=== PATIENT | male | born 1975 | race Caucasian/White ===

== ENCOUNTER 2018-05-16 10:23 | Emergency (ER) | payer OTHER ==
--- OUTSIDE RECORDS SUMMARY | 2018-05-16 10:26 | XMS REPORT | Clinical Summary ---
:1975 Author Organization [facility] Address [address] [place] [address] Care Team Providers Name Role Phone Lacey Merritt MD Primary Care Provider Allergies Active Allergy Reactions Severity Noted Date Comments Promethazine 03/09/2016 Propranolol Other (See Comments) High 11/25/2015 Drops Blood pressure. Metoclopramide Hcl Other (See Comments) High 11/25/2015 Suicidal Ideation. Medications Medication Sig Dispensed Refills Start Date End Date Status ARIPiprazole (ABILIFY) Take 5 mg by 0 Active 5 MG tablet mouth daily. busPIRone (BUSPAR) 10 Take 15 mg by 0 Active MG tablet mouth 2 (two) times a day. clonAZEPAM (KlonoPIN) Take 0.5 mg by 0 Active 0.5 MG tablet mouth daily as needed for seizures. Active Problems Not on file Family History Medical History Relation Name Comments Aortic aneurysm Father Atrial fibrillation Mother Hepatitis Mother "hepatitis C" Leukemia Mother Stroke Sister Relation Name Status Comments Father Mother Sister Social History Tobacco Use Types Packs/Day Years Used Date Former Smoker 25 Comments: "did smoke a half pack to a full pack a day for 26 years" Sex Assigned at Date Recorded Not on file Job Start Date Occupation Industry Not on file Not on file Not on file Travel History Travel Start Travel End No recent travel history available. Last Filed Vital Signs Not on file Plan of Treatment Health Maintenance Due Date Last Done Comments INFLUENZA VACCINE 11/29/2017 Results Not on fileafter 05/15/2017 Insurance Payer Benefit Plan / Group Subscriber ID Type Phone Address BCBS BCBS CHOICE PPO/FEDERAL EMPL PPO xxxxxxxxxxxx PPO Advance Directives Patient has advance care planning documents on file. For more information, please contact:Raleigh Guzman[address] [place] [address]
[2018-05-16 10:41] LABS: Absolute Lymphocytes (CBC) 1.4 K/uL (0.7-4.9); Absolute Monocytes 0.4 K/uL (0.1-1.3); Basophils % 0.3 % (0-1.3); Eosinophils % 1.1 % (0-4.4); Hematocrit 43.4 % (39.6-49.0); Lymphocytes % 23.4 % (15.3-44.8); Monocytes % 6.8 % (3.3-12.3); RBC Red Blood Cell Count 5.13 M/uL (4.33-5.43)
[2018-05-16 10:54] LABS: Potassium 3.6 mmol/L (3.5-5.1)
--- NOTE | 2018-05-16 11:02 | RAD REPORT ---
EXAM DESCRIPTION: CT - Head Brain Wo Cont - 05/16/2018 10:52 am CLINICAL HISTORY: visual disturbance, left temporal Headache, history of TIA/CVA COMPARISON: Ct Stroke Brain Wo Cont dated 03/17/2017; HEAD BRAIN W O CONTRAST dated 08/24/2011; Brain Wo Cont dated 03/17/2017 TECHNIQUE: All CT scans are performed using dose optimization technique as appropriate and may inclu de automated exposure control or mA/KV adjustment according to patient size. FINDINGS: No intracranial hemorrhage, hydrocephalus or extra-axial fluid collection.No areas of brai n edema or evidence of midline shift. The paranasal sinuses and mastoids are clear. The calvarium is intact. IMPRESSION: No acute intracranial abnormality.
[2018-05-16 12:47] LABS: Urine Blood NEGATIVE (NEG); Urine Glucose NEGATIVE (NEG); Urine Protein NEGATIVE (NEG); Urine Specific Gravity 1.015 (1.005-1.030); Urine pH 5.5 (5.0-7.0)
--- NOTE | 2018-05-16 12:58 | RAD REPORT ---
EXAM DESCRIPTION: - CP - 05/16/2018 12:48 pm CLINICAL HISTORY: VISUAL DISTURBANCES TIA/CVA COMPARISON: No comparisons TECHNIQUE: Real-time sonographic evaluation of both carotid systems was performed. Doppler interroga tion was performed with waveform tracing bilaterally. FINDINGS: Normal high resistance waveforms are noted in both external carotid arteries. The common c arotid arteries and internal carotid arteries show normal low resistance waveforms. No significant plaque formation is seen. Peak systolic and end diastolic velocity values and the ICA/ CCA ratios are in the non-hemodynamically significant range. Antegrade flow seen in both vertebral arteries. IMPRESSION: No significant atherosclerotic changes noted. No evidence of a hemodynamically significant stenosis.
--- NOTE | 2018-05-16 13:26 | ER ---
Nurse's Notes [facility] Name: Juan David Weldon Age: 42 yrs Sex: Male : 1975 Arrival Date: 05/16/2018 Time: 10:27 Bed 2 Private MD: Diagnosis: Visual disturbances;Visual field defects Presentation: 05/16 10:21 Presenting complaint: EMS states: sudden onset visual disturbance that started about sv 0930 and lasted under an hour and has subsided since then. EKG SR, BS-97, 20 G R AC. Transition of care: patient was not received from another setting of care. Onset of symptoms was May 16, 2018 at 09:30. Risk Assessment: Do you want to hurt yourself or someone else? Patient reports no desire to harm self or others. Initial Sepsis Screen: Does the patient meet any 2 criteria? No. Patient's initial sepsis screen is negative. Does the patient have a suspected source of infection? No. Patient's initial sepsis screen is negative. Care prior to arrival: IV initiated. 20 GA, in the right antecubital area, Glucose check: 97. 10:21 Method Of Arrival: EMS: Independent IP EMS sv 10:21 Acuity: AYAH 3 sv Historical: - Allergies: 10:53 Reglan; sv 10:53 SSRIs; sv - Home Meds: 10:53 Prilosec Oral [Active]; Aspirin Oral [Active]; sv - PMHx: 10:53 Anxiety; Depression; GERD; hiatal hernia; sv - PSHx: 10:53 None; sv - Immunization history:: Adult Immunizations up to date. - Social history:: Smoking status: Patient/guardian denies using tobacco. - Family history:: not pertinent. - Ebola Screening: : No symptoms or risks identified at this time. - Hospitalizations: : No recent hospitalization is reported. Screenin:30 Abuse screen: Denies threats or abuse. Denies injuries from another. Nutritional sv screening: No deficits noted. Tuberculosis screening: No symptoms or risk factors identified. Fall Risk None identified. Assessment: 11:40 Reassessment: Patient appears in no apparent distress at this time. No changes from sv previously documented assessment. Patient and/or family updated on plan of care and expected duration. Pain level reassessed. Patient is alert, oriented x 3, equal unlabored respirations, skin warm/dry/pink. 12:29 Reassessment: Patient appears in no apparent distress at this time. No changes from sv previously documented assessment. Patient and/or family updated on plan of care and expected duration. Pain level reassessed. Patient is alert, oriented x 3, equal unlabored respirations, skin warm/dry/pink. Ultrasound at the bedside. 13:30 Reassessment: Patient appears in no apparent distress at this time. No changes from sv previously documented assessment. Patient and/or family updated on plan of care and expected duration. Pain level reassessed. Patient is alert, oriented x 3, equal unlabored respirations, skin warm/dry/pink. Vital Signs: 10:46 BP 127 / 90 Sitting; Pulse 87 MON; Resp 15 S; Temp 98.3; Pulse Ox 100% on R/A; sg 11:52 BP 121 / 88; Pulse 69; Resp 13; Pulse Ox 97% ; sv 12:28 BP 118 / 81; Pulse 79; Resp 16; Pulse Ox 100% on R/A; sv 13:08 BP 113 / 85; Pulse 89; Resp 19; Pulse Ox 100% ; sv ED Course: 10:21 Maintain EMS IV. Dressing intact. Good blood return noted. Site clean \T\ dry. Gauge \T\ sv site: 20G R AC. 10:27 Patient arrived in ED. rn 10:28 Jefferson Calderon MD is Attending Physician. rn 10:29 Alexandra Anders, RN is Primary Nurse. sv 10:30 Initial lab(s) drawn, by ED staff, sent to lab. sv 10:30 Arm band placed on. sv 10:30 Patient has correct armband on for positive identification. Placed in gown. Bed in low sv position. Call light in reach. Side rails up X2. manganese breaker on. Pulse ox on. NIBP on. Door closed. Head of bed elevated. 10:43 Triage completed. sv 10:44 EKG done, by hydrological technical officer. reviewed by Jefferson Calderon MD. sm3 10:51 CT completed. Patient tolerated procedure well. Patient moved to CT via wheelchair. sj Patient moved back from CT. 10:52 CT Head Brain wo Cont In Process Unspecified. EDMS 11:30 Urine collected: clean catch specimen, clear, jose j colored. jb1 12:34 Carotid Artery Bilateral US In Process Unspecified. EDMS 12:34 Note: us done bedside in er/completed. lc3 13:25 Tito Ware MD is Referral Physician. rn 13:31 No provider procedures requiring assistance completed. IV discontinued, intact, ss bleeding controlled, No redness/swelling at site. Pressure dressing applied. Administered Medications: No medications were administered Point of Care Testing: Blood Glucose: 10:46 Blood Glucose: 98 mg/dL; sg Ranges: Outcome: 13:25 Discharge ordered by MD. rn 13:31 Discharged to home ambulatory. ss 13:31 Condition: good 13:31 Discharge instructions given to patient, Instructed on discharge instructions, follow up and referral plans. Demonstrated understanding of instructions, follow-up care. 13:32 Patient left the ED. ss Signatures: Dispatcher [employer] EDMS Ilia Milner jb1 Alexandra Anders, RN RN Rikki Burgos RN RN sg Jones, Susan sj Nieto, Roman, MD MD rn Smirch, Shelby, RN RN Zafar Escobar Shakira 3
--- NOTE | 2018-05-16 13:26 | EDPHYS ---
Physician Documentation [facility] Name: Juan David Weldon Age: 42 yrs Sex: Male : 1975 Arrival Date: 05/16/2018 Time: 10:27 Bed 2 Private MD: ED Physician Jefferson Calderon HPI: 05/16 10:39 This 42 yrs old Male presents to ER via Unassigned with complaints of Loss Of rn Vision. 10:39 Onset: The symptoms/episode began/occurred 1 hour(s) ago. Duration: the symptoms last 1 rn hour(s). Aggravated by nothing. Alleviated by nothing. Severity of symptoms: At their worst the symptoms were mild in the emergency department the symptoms have resolved. The patient has not experienced similar symptoms in the past. The patient has not recently seen a physician. Reports driving to work, noticed loss of vision left temporal side, thinks both eyes because tested them, similar episode in past, told had TIA, now symptoms resolved after 1 hour.. Historical: - Allergies: 10:53 Reglan; sv 10:53 SSRIs; sv - Home Meds: 10:53 Prilosec Oral [Active]; Aspirin Oral [Active]; sv - PMHx: 10:53 Anxiety; Depression; GERD; hiatal hernia; sv - PSHx: 10:53 None; sv - Immunization history:: Adult Immunizations up to date. - Social history:: Smoking status: Patient/guardian denies using tobacco. - Family history:: not pertinent. - Ebola Screening: : No symptoms or risks identified at this time. - Hospitalizations: : No recent hospitalization is reported. ROS: 10:39 Constitutional: Negative for fever, chills, and weight loss, Eyes: Negative for injury, rn pain, redness, and discharge, Neck: Negative for injury, pain, and swelling, Cardiovascular: Negative for chest pain, palpitations, and edema, Respiratory: Negative for shortness of breath, cough, wheezing, and pleuritic chest pain, Abdomen/GI: Negative for abdominal pain, nausea, vomiting, diarrhea, and constipation, MS/Extremity: Negative for injury and deformity, Skin: Negative for injury, rash, and discoloration, Neuro: Negative for headache, weakness, numbness, tingling, and seizure. Exam: 10:38 ECG was reviewed by the Attending Physician. rn 10:39 Visual Acuity: I have reviewed the nursing documentation. Visual acuity is within rn normal limits. 10:39 Constitutional: This is a well developed, well nourished patient who is awake, alert, and in no acute distress. Head/Face: Normocephalic, atraumatic. Eyes: Pupils equal round and reactive to light, extra-ocular motions intact. Lids and lashes normal. Conjunctiva and sclera are non-icteric and not injected. Cornea within normal limits. Periorbital areas with no swelling, redness, or edema. Cardiovascular: Regular rate and rhythm, No pulse deficits. Respiratory: Lungs have equal breath sounds bilaterally, clear to auscultation Abdomen/GI: Soft, non-tender, with normal bowel sounds. No distension or tympany. No guarding or rebound. No evidence of tenderness throughout. MS/ Extremity: Pulses equal, no cyanosis. Neurovascular intact. Full, normal range of motion. Equal circumference. Neuro: Awake and alert, GCS 15, oriented to person, place, time, and situation. Cranial nerves II-XII grossly intact. Motor strength 5/5 in all extremities. Sensory grossly intact. Cerebellar exam normal. Vital Signs: 10:46 BP 127 / 90 Sitting; Pulse 87 MON; Resp 15 S; Temp 98.3; Pulse Ox 100% on R/A; sg 11:52 BP 121 / 88; Pulse 69; Resp 13; Pulse Ox 97% ; sv 12:28 BP 118 / 81; Pulse 79; Resp 16; Pulse Ox 100% on R/A; sv 13:08 BP 113 / 85; Pulse 89; Resp 19; Pulse Ox 100% ; sv MDM: 10:28 Patient medically screened. rn 13:23 Differential diagnosis: TIA, primary ocular problem. Data reviewed: vital signs, nurses rn notes. 13:23 Counseling: I had a detailed discussion with the patient and/or guardian regarding: the rn historical points, exam findings, and any diagnostic results supporting the discharge/admit diagnosis, lab results, radiology results, the need for outpatient follow up, to return to the emergency department if symptoms worsen or persist or if there are any questions or concerns that arise at home. Special discussion: I discussed with the patient/guardian in detail that at this point there is no indication for admission to the hospital. It is understood, however, that if the symptoms persist or worsen the patient needs to return immediately for re-evaluation. Based on the history and exam findings, there is no indication for further emergent testing or inpatient evaluation. I discussed with the patient/guardian the need to see the neurologist for further evaluation of the symptoms. 13:23 ED course: Pt requests to go home, does not want to be admitted, recommended appeals rn with re-workup, patient states would rather do outpt w/u. Will continue aspirin. Ans needs to f/u with neuro. Has seen dr. de la cruz. . 05/16 10:30 Order name: CBC with Diff; Complete Time: 11: rn 05/16 10:30 Order name: Basic Metabolic Panel; Complete Time: 11: rn 05/16 10:30 Order name: CT Head Brain wo Cont; Complete Time: 11: rn 05/16 10:30 Order name: EKG; Complete Time: 10:31 rn 05/16 11:26 Order name: Urine Dipstick--Ancillary (enter results); Complete Time: 13:22 em1 05/16 11:31 Order name: Carotid Artery Bilateral US; Complete Time: 13:22 rn 05/16 10:30 Order name: IV Start; Complete Time: 10:41 rn 05/16 10:30 Order name: EKG - Nurse/Tech; Complete Time: 12:02 rn 05/16 10:31 Order name: Glucose Level; Complete Time: 12:02 rn EC:38 Rate is 82 beats/min. Rhythm is regular. QRS Sunflower is Normal. FL interval is normal. QRS rn interval is normal. QT interval is normal. No Q waves. T waves are Normal. No ST changes noted. Clinical impression: Normal ECG. Interpreted by me. Administered Medications: No medications were administered Point of Care Testing: Blood Glucose: 10:46 Blood Glucose: 98 mg/dL; sg Ranges: Critical Glucose Levels:Adult <50 mg/dl or >400 mg/dl <40 mg/dl or >180 mg/dl Disposition: 05/16/18 13:25 Discharged to Home. Impression: Visual disturbances, Visual field defects. - Condition is Stable. - Discharge Instructions: Visual Disturbances, Transient Ischemic Attack. - Work release form, Medication Reconciliation Form, Thank You Letter, Antibiotic Education, Prescription Opioid Use form. - Follow up: Tito De La Cruz MD; When: As needed; Reason: Recheck today's complaints, Re-evaluation by your physician. - Problem is new. - Symptoms have improved. Signatures: Dispatcher [employer] Alexandra Childers RN RN Jefferson Guajardo MD MD rn Smirch, Shelby, RN RN ss Corrections: (The following items were deleted from the chart) 13:32 13:25 05/16/2018 13:25 Discharged to Home. Impression: Visual disturbances; Visual ss field defects. Condition is Stable. Forms are Medication Reconciliation Form, Thank You Letter, Antibiotic Education, Prescription Opioid Use. Follow up: Tito De La Cruz; When: As needed; Reason: Recheck today's complaints, Re-evaluation by your physician. Problem is new. Symptoms have improved. rn
[2018-05-16 13:37] VITALS: BP 127/90; TEMP 98.3; O2SAT 100
--- NOTE | 2018-05-16 14:01 | EKG ---
Test Date: 2018-05-16 Test Time: 10:34:47 Marketing Secretary: BINA MEASUREMENT RESULTS: Intervals: Rate: 82 CO: 168 QRSD: 104 QT: 350 QTc: 408 Paradox: P: 60 CO: 168 QRS: 78 T: 73 INTERPRETIVE STATEMENTS: Normal sinus rhythm Normal ECG Compared to ECG 03/17/2017 12:16:00 Sinus arrhythmia no longer present Electronically Signed On 05-16-18 14:00:24 INSPECTOR TECHNICIAN by Husam Swan
== END 2018-05-16 13:32 | disposition home or self-care (01) ==
LOC: ER 10:23
DX: H53.9 Unspecified visual disturbance (principal); H54.7 Unspecified visual loss
CPT/HCPCS: 36415; 70450; 80048; 81003; 82962; 85025; 93005; 93880; 99285